=== PATIENT | male | born 1960 | race Caucasian/White ===

== ENCOUNTER → 2017-12-16 | Outpatient (CLI) | payer OTHER ==
[2017-12-16 08:55] LABS: BASOPHIL % 0.3 % (0-2); PLATELET COUNT 303 x10^3mcL (130-400)
[2017-12-16 08:56] LABS: RED CELL DISTRIBUTION WIDTH 15.6 % (11.5-14.5)
[2017-12-16 09:18] LABS: ALKALINE PHOSPHATASE 51 U/L (46-116); ALT/SGPT 42 U/L (16-63); AST/SGOT 16 U/L (15-37); BILIRUBIN DIRECT 0.21 mg/dL (0.0-0.2); BILIRUBIN TOTAL 1.1 mg/dL (0.20-1.00); CALCIUM 8.7 mg/dL (8.5-10.1); CARBON DIOXIDE 30.4 mmol/L (21-32); CHLORIDE SERUM 104 mmol/L (98-107); FREE T4 0.91 ng/dL (0.76-1.46); GFR1 > 60 mL/min; GLUCOSE SERUM 93 mg/dL (74-106); HDL CHOLESTEROL 35 mg/dL (40-60); MAGNESIUM 2.1 mg/dL (1.8-2.4); POTASSIUM SERUM 4.7 mmol/L (3.5-5.1); SODIUM SERUM 142 mmol/L (136-145); TOTAL PROTEIN, SERUM 7.1 g/dL (6.4-8.2); TRIGLYCERIDES 48 mg/dL (<150)
[2017-12-16 09:19] LABS: CHOLESTEROL 125 mg/dL (<200); CHOLESTEROL/HDL RATIO 3.6
[2017-12-16 09:44] LABS: microscopic required? YES; urine erythrocyte 1+ (NEGATIVE)
[2017-12-17 11:10] LABS: VITAMIN D 25-HYDROXY 23.6 ng/mL (30.0-100.0)
== END | disposition home or self-care (01) ==
LOC: LB 08:27
PROVIDERS: Internal Medicine Interventional Cardiology
DX: I10 Essential (primary) hypertension (principal); E78.00 Pure hypercholesterolemia, unspecified
CPT/HCPCS: 84439

== ENCOUNTER → 2019-02-07 | Outpatient (CLI) | payer OTHER ==
[2019-02-07 08:03] LABS: ALBUMIN 4.1 g/dL (3.4-5.0); ALKALINE PHOSPHATASE 55 U/L (46-116); ALT/SGPT 28 U/L (16-63); AST/SGOT 20 U/L (15-37); BILIRUBIN DIRECT 0.26 mg/dL (0.0-0.2); BILIRUBIN TOTAL 1.5 mg/dL (0.20-1.00); CALCIUM 9.2 mg/dL (8.5-10.1); CARBON DIOXIDE 29.2 mmol/L (21-32); CHLORIDE SERUM 103 mmol/L (98-107); CREATININE SERUM 1.2 mg/dL (0.7-1.3); GFR1 > 60 mL/min; GLUCOSE SERUM 93 mg/dL (74-106); HDL CHOLESTEROL 35 mg/dL (40-60); POTASSIUM SERUM 4.1 mmol/L (3.5-5.1); SODIUM SERUM 138 mmol/L (136-145); TOTAL PROTEIN, SERUM 7.3 g/dL (6.4-8.2); TRIGLYCERIDES 61 mg/dL (<150)
[2019-02-07 08:04] LABS: CHOLESTEROL 112 mg/dL (<200); CHOLESTEROL/HDL RATIO 3.2
[2019-02-07 08:25] LABS: BASOPHIL % 0.7 % (0-2); PLATELET COUNT 287 x10^3mcL (130-400)
[2019-02-07 08:26] LABS: RED CELL DISTRIBUTION WIDTH 14.7 % (11.5-14.5)
== END | disposition home or self-care (01) ==
LOC: LB 07:12
PROVIDERS: Internal Medicine
DX: Z00.00 Encounter for general adult medical examination without abnormal findings (principal)